=== PATIENT | female | born 1995 | race Two or more races ===

== ENCOUNTER 2021-11-08 10:16 | Emergency (ER) | payer MEDICAID, OTHER ==
[~2021-11-08] VITALS: Ht 154.9 cm; Wt 57.6 kg
[2021-11-08] MEDS ORDERED: TRIA0.02 TOP (12:52)
[2021-11-08] MEDS ORDERED: IBUP600T27 PO (12:52)
[2021-11-08] MEDS ORDERED: METH500T22 PO (12:52)
[2021-11-08] MEDS ORDERED: ACETAMINOPHEN 325 MG TAB PO ONE (13:00)
[2021-11-08 13:03] VITALS: BP 115/72
== END 2021-11-08 13:04 | disposition home or self-care (01) ==
LOC: ER 10:16
DX: S16.1XXA Strain of muscle, fascia and tendon at neck level, initial encounter (principal); L25.9 Unspecified contact dermatitis, unspecified cause; J45.909 Unspecified asthma, uncomplicated; X50.1XXA Overexertion from prolonged static or awkward postures, initial encounter; Y93.89 Activity, other specified; Y92.89 Other specified places as the place of occurrence of the external cause; Y99.8 Other external cause status

== ENCOUNTER 2023-01-09 13:34 | Emergency (ER) | payer MEDICAID ==
[~2023-01-09] VITALS: Ht 157.5 cm; Wt 58.8 kg
[~2023-01-09 13:34] MED LIST: IBUP-1454 PO; METH-1181 PO; TRIA0.02 TOP
[2023-01-09 14:17] VITALS: BP 104/70; PULSE 89; RESP 16; TEMP 98.2; O2SAT 100
[2023-01-09] MEDS ORDERED: cefTRIAXone SOD 1,000 MG VL IM ONE (14:45)
[2023-01-09] MEDS ORDERED: AZIT-81 PO (15:05)
[2023-01-09] MEDS ORDERED: LIDO2SOL26 MT (15:05)
== END 2023-01-09 15:14 | disposition home or self-care (01) ==
LOC: ER 13:34
DX: J03.90 Acute tonsillitis, unspecified (principal); J45.909 Unspecified asthma, uncomplicated; Z79.1 Long term (current) use of non-steroidal anti-inflammatories (NSAID); Z79.2 Long term (current) use of antibiotics; Z79.899 Other long term (current) drug therapy
CPT/HCPCS: 96372; 99283; J0696